=== PATIENT | female | born 1965 | race Caucasian/White ===

== ENCOUNTER 2025-04-30 09:00 | Outpatient (RCR) | payer OTHER, SELFPAY ==
--- NOTE | 2025-03-17 16:38 | OPREHPOC ---
Outpatient Therapy Plan of Care This is a Multidisciplinary Plan of Care that may contain components documented by all disciplines (PT, OT, and ST.) PT Problem 1 PT Problem #1 Knowledge Deficit PT Goal 1 Goal / Goal Update *independent with HEP Target Visit 8 PT Problem 2 PT Problem #2 Pain PT Goal 1 Goal / Goal Update * pt report pain rating of 8/10 at worst Target Visit 8 PT Problem 3 PT Problem #3 Impaired Strength PT Goal 1 Goal / Goal Update * increase LE strength to improve mobility gross strength R and L to 4/5 Target Visit 8 PT Problem 4 PT Problem #4 Impaired Functional Mobility PT Goal 1 Goal / Goal Update 1* 5 reps sit/stand time of 25 seconds, without use of UE, from w/c 2* pt stand without UE support x 15 seconds 3* pt ambulate with or without assistive device 40 ' Target Visit 8
--- NOTE | 2025-03-17 16:39 | PTOPEVAL1 ---
Assessment and note entered by Padmini Sanchez PT Evaluation Information Assessment Status Evaluation ICD-10 Condition Codes (PT) Radiculopathy, lumbar region M54.16,Pain in right knee M25.561 Other ICD-10 Condition Codes ( sacroilitis M46.1 PT) Onset about 1 year ago Subjective Information chronic issues with pain and finally able to get into pain management; treatment from pain management: lumbar ablation, 4 back injections at orthopedic dr: shots in knees every 3 months, SI shot sports med dr: injection L elbow due to hand numbness and pain; have had PT for her back in the past: PT did not help, made pain worse, used weights on her legs and hurt more after therapy Activity: walking in home only distances, by holding onto harper, hands hurt and cannot hold onto her walker; do not have a w/c at home, but when go places, use the w/c there; have help at home with bathing, laundry, groceries delivered, transportation; son assist with errands, trash; try to do some back stretching lying down and knee kicks with sitting. Reported Pain Level Pain Score Self Report Additional Pain Score Comments pain range in the past week 8-06/06: low back, both knees; radicular pain R LE to below knee and L LE to mid anterior thigh; increase pain: walking few steps, sitting over 20 minutes decrease pain: sleeping: not good due to sleep apnea, sinus issues, cramps in legs with sleeping--about 45 minutes at time Assessment PT Clinical Summary Josi has the diagnosis of back pain, radicular into both LE's and R knee pain. Gradual increase in pain, with treatment by pain management and ortho for injections into both knees regularly. She has limited sitting, walking, sleeping and activity level due to pain. Assistance at home for transportation, bathing, dressing and home tasks. She does not go to her basement. Back Index self rating score of 100% limitation in activity level. She does not want to do any land therapy--did before and it made her pain worse. With the evaluation: 5 reps sit/stand time from w /c is 34 seconds, with use of 1 UE; walking distance of 10' without assistive device; poor standing posture with flexion of trunk, hips and knees; she refuses to use assistive device due to arm, hand and wrist pain; she was able to do the stairs to the pool--she is over the weight limit for the lift into the water. Skilled PT services are indicated for aquatic therapy to increase LE strength and mobility skills, with education for HEP and posture, body mechanics. Progression to land exercises and walking as tolerated. Plan of Care Interventions Aquatic Therapy,Gait Training,Patient/Caregiver Education,Therapeutic Activities,Therapeutic Exercise PT Services Indicated Yes Treatment Frequency and 2x/wk for 8 visits Duration These treatments will address the objective and functional deficits as defined above. The patient will be advanced safely and appropriately in order for the patient to progress towards his/her prior level of function. Additional exercises will be introduced and as well as a comprehensive home exercise program upon discharge, if needed, ?to ensure carryover of functional gains achieved in the clinic. This treatment plan has been reviewed and agreement upon by the patient.
--- NOTE | 2025-04-30 10:04 | OPREHPOC ---
Outpatient Therapy Plan of Care This is a Multidisciplinary Plan of Care that may contain components documented by all disciplines (PT, OT, and ST.) PT Problem 1 PT Problem #1 Knowledge Deficit PT Goal 1 Goal / Goal Update *independent with HEP 04-30-25 progress goal met continue to progress education and HEP Target Visit 16 PT Problem 2 PT Problem #2 Pain PT Goal 1 Goal / Goal Update * pt report pain rating of 8/10 at worst 04-30-25 progress goal not met, 9/10 at worst continue towrads goal Target Visit 16 PT Problem 3 PT Problem #3 Impaired Strength PT Goal 1 Goal / Goal Update * increase LE strength to improve mobility gross strength R and L to 45 04-30-25 progress goal not met 4-/5 continue towards goal Target Visit 16 PT Problem 4 PT Problem #4 Impaired Functional Mobility PT Goal 1 Goal / Goal Update 1* 5 reps sit/stand time of 25 seconds, without use of UE, from w/c 2* pt stand without UE support x 15 seconds 3* pt ambulate with or without assistive device 40 ' 04-30-25 progress goal 1,2 met: #3 is 35' Target Visit 8 Progress Partially Met PT Goal 2 Goal / Goal Update 04-30-25 progress NEW Goals; 1* pt ambulate maximum distance of 60' with or without assistive device 2* static standing without UE support x 100 seconds 3* 5 reps sit/stand without use of UE, from w/c in 20 seconds Target Visit 16
--- NOTE | 2025-04-30 10:04 | PTOPPROG ---
Assessment and note entered by Padmini Sanchez, PT Assessment Status Progress ICD-10 Condition Codes (PT) Radiculopathy, lumbar region M54.16,Pain in right knee M25.561 Other ICD-10 Condition Codes ( sacroilitis M46.1 PT) Onset about 1 year ago Subjective Information to have procedure for 2 injections to back on ; back needs an ablation; therapy is helping me some- able to get up easier and more, able to do small things easier, walking in the house more, able to sit longer; back hurting more, too long since last procedure; able to get up and walk in her 1300' home ~ 25 x/day from room to room, about ~ do not use the wheeled walker in her house, due to her problems with gripping her hands, due to nerve issues, holds onto furniture; Assessment PT Clinical Summary Leslie has received a total of 8 PT sessions. With today's assessment, she has improved in all areas, except pain rating at the least is still 8/ 10 and stands with flexion of trunk, hips and kness; high pain rating now 9/10; self assessment with back index rating of 92% limitation in activity level; 5 reps sit/stand with use of 1 UE from w/c of 21 seconds; walking tolerance without assistive device of 35' in 59 seconds & with the vlad cane 15', but she does not like it and wants to hold onto furniture and harper at home; standing tolerance- static for 59 seconds; gross strength of R and L LE is 4-/5; education completed for HEP and importance of walking, exercises and increasing her activity level. Discussed with pt progression of treatment to 1 land and 1 aquatic therapy per week. She does not want to do land treatments, stated have done before and hurt too much- want to do the water exercises only. Discussed with her the need to move away from water and progress to land activity and modalities can be used for pain--stim, heat, US. She does not want land exercises and is going to talk to her dr, dr does not want her on land. She also reports multiple areas of pain-- neck, shoulders, L hand nerve issues, L knee meniscal tear. And stated she needs procedure for her back, dr to see her about her neck and arm. PT plan of care for 8 visits, 1 land and 1 water per week. Pt does not agree with this plan and did not schedule any additional appointments. She wants to talk to her dr. Plan of Care Interventions Aquatic Therapy,Electrical Stimulation,Gait Training,Hot Pack/Cold Pack,Manual Therapy,Neuro Re-education,Patient/Caregiver Education, Therapeutic Activities,Therapeutic Exercise, Ultrasound,Other Other Interventions taping PT Services Indicated Yes Treatment Frequency and PT plan of care for 8 visits: 1 land and 1 water Duration per week. Pt does not agree with this plan and did not schedule any additional appointments. She wants to talk to her dr. These treatments will address the objective and functional deficits as defined above. The patient will be advanced safely and appropriately in order for the patient to progress towards his/her prior level of function. Additional exercises will be introduced and as well as a comprehensive home exercise program upon discharge, if needed, ?to ensure carryover of functional gains achieved in the clinic. This treatment plan has been reviewed and agreement upon by the patient.
--- NOTE | 2025-05-05 15:27 | PTOPDC ---
Assessment and note entered by Padmini Sanchez, PT Assessment Status Discharge - Pt Not Present ICD-10 Condition Codes (PT) Radiculopathy, lumbar region M54.16,Pain in right knee M25.561 Other ICD-10 Condition Codes ( sacroilitis M46.1 PT) Onset about 1 year ago Subjective Information pt request discharge from PT. Assessment PT Clinical Summary Leslie request discharge from PT treatments, due to wanting aquatic treatment only. She did not agree with the treatment plan of aquatic and land exercises. Discharge PT per pt request. The goals were not addressed. Plan of Care PT Services Indicated No
== END 2025-05-06 08:45 | disposition home or self-care (01) ==
LOC: ANHPT 09:00
DX: M54.16 Radiculopathy, lumbar region (principal); M46.1 Sacroiliitis, not elsewhere classified; M25.561 Pain in right knee; G89.29 Other chronic pain
CPT/HCPCS: 97110; 97113; 97116; 97162; 97530